=== PATIENT | male | born 1970 | race Caucasian/White ===

== ENCOUNTER 2017-02-19 01:13 | Emergency (ER) | payer MEDICAID, OTHER ==
[~2017-02-19] VITALS: Ht 162.6 cm; Wt 78.0 kg
[2017-02-19 01:18] VITALS: Ht 162.6 cm; Wt 78.0 kg
[2017-02-19] MEDS ORDERED: KETOROLAC 60 MG INJ IM STA (03:45)
--- NOTE | 2017-02-19 04:10 | ERD ---
ER Documentation Chief Complaint Date/Time DATE: 02/19/17 TIME: 04:08 Chief Complaint scrotal pain x 2 weeks HPI 46-year-old male presents to emergency department for complaints of left scrotal pain for 2 weeks,feels a lump in the left scrotum, discussed the pain as sharp pain, for/10 scale, radiates to the left groin area. Patient denies any new sexual partners. Patient denies any penile discharge. Patient denies any fever or chills. Patient denies any trauma and affected area. Patient denies any dysuria. ROS All systems reviewed and are negative except as per history of present illness. Medications Home Meds Reported Medications [none] Unknown Strength No Conflict Check 02/19/17 Allergies Allergies: Coded Allergies: No Known Allergy (Unverified , 02/19/17) PMhx/Soc Medical and Surgical Hx: pt denies Medical Hx, pt denies Surgical Hx Hx Alcohol Use: No Hx Substance Use: No Hx Tobacco Use: No Smoking Status: Never smoker FmHx Family History: No coronary disease, No diabetes, No other Physical Exam Vitals Vital Signs Date Time Temp Pulse Resp B/P Pulse Ox O2 Delivery O2 Flow Rate FiO2 02/19/17 01:18 97.8 88 20 130/86 98 Physical Exam GENERAL: The patient is well developed and appropriate for usual state of health, in no apparent distress. CHEST: Clear to auscultation bilaterally. There are no rales, wheezes or rhonchi. HEART: Regular rate and rhythm. No murmurs, clicks, rubs or gallops. No S3 or S4. ABDOMEN: Soft, nontender and nondistended. Good bowel sounds. No rebound or guarding. No gross peritonitis. No gross organomegaly or masses. No Mosqueda sign or McBurney point tenderness. BACK: No midline or flank tenderness. EXTREMITIES: Equal pulses bilaterally. There is no peripheral clubbing, cyanosis or edema. No focal swelling or erythema. Full range of motion. Grossly neurovascularly intact. NEURO: Alert and oriented. Cranial nerves 2-12 intact. Motor strength in all 4 extremities with 5/5 strength. Sensation grossly intact. Normal speech and gait. SKIN: There is no apparent rash or petechia. The skin is warm and dry. HEMATOLOGIC AND LYMPHATIC: There is no evidence of excessive bruising or lymphedema. No gross cervical, axillary, or inguinal lymphadenopathy. : Noted tenderness on palpation on the left scrotum, no redness noted, no swelling noted, no discharge. No lesions noted. Mild tenderness on palpation on the left groin area, no swelling noted. No palpable inguinal hernia noted. Results 24 hrs Laboratory Tests Test 02/19/17 03:55 Urine Color YELLOW Urine Clarity CLEAR Urine pH 5.0 Urine Specific [place] 1.024 Urine Ketones NEGATIVEmg/dL Urine Nitrite NEGATIVEmg/dL Urine Bilirubin NEGATIVEmg/dL Urine Urobilinogen NEGATIVEmg/dL Urine Leukocyte Esterase NEGATIVELeu/ul Urine Hemoglobin NEGATIVEmg/dL Urine Glucose NEGATIVEmg/dL Urine Total Protein NEGATIVEmg/dl Current Medications Medications (Trade) Dose Ordered Sig/Veronica Route PRN Reason Start Time Stop Time Status Last Admin Dose Admin Ketorolac Tromethamine (Toradol) 60 mg ONCE STAT IM 02/19/17 03:45 02/19/17 03:46 DC 02/19/17 04:42 Patient was given medication for pain here in emergency department, after treatment, patient verbalized feeling much better. Patient's pain is improved. PROCEDURE: Scrotal ultrasound CLINICAL INDICATION: Pain TECHNIQUE: Scrotal ultrasound was performed with sagittal and transverse views. Godwin scale and color imaging was performed. Images were reviewed on high resolution PACS monitors. COMPARISON: None available FINDINGS: The right testicle measures 4.5 x 2.1 x 2.7 cm. There is normal size and echogenicity and morphology of the right testicle with normal blood flow. The right epididymis is normal. A small right hydrocele is seen. Soft tissues are unremarkable. No mass or cyst or other abnormality is present. There is no evidence for a varicocele. The left testicle measures 4.0 x 1.8 x 2.7 cm. There is normal size and echogenicity and morphology of the left testicle with normal blood flow. There is a 6 mm left epididymal head cyst. The left epididymis is otherwise normal. No hydrocele is seen. Soft tissues are unremarkable. No mass or cyst or other abnormality is present. There is no evidence for a varicocele. IMPRESSION: 1. Normal appearance of the testes. 2. Small right hydrocele. RPTAT: HH .Deb Vaughn MD, Date Time Electronically viewed and signed by .Deb Vaughn MD, MD on 02/19/2017 05 :21 .G/ CC: ROBERT HERNANDEZ NP PROCEDURE: Left groin ultrasound CLINICAL INDICATION: Left groin pain. Rule out hernia. TECHNIQUE: Sonographic evaluation of the left groin was performed. Godwin scale and color imaging was obtained. Evaluation of the left groin was performed both with and without Valsalva maneuver. Images were reviewed on a high-resolution PACS workstation. COMPARISON: None available FINDINGS: The normal fascial planes and underlying musculature is preserved. Subcutaneous tissues of the left groin are unremarkable. The vasculature is visualized is normal. No mass or fluid collection or other abnormality is seen. There is no adenopathy. No hernia is seen with Valsalva maneuver. IMPRESSION: 1. Unremarkable ultrasound of the left groin. 2. No definite evidence for hernia. RPTAT: HH .Deb Vaughn MD, Date Time Electronically viewed and signed by .Deb Vaughn MD, on 02/19/2017 05 :21 .G/ Procedures/[facility] Medical decision making: Patient's left scrotal pain nonspecific at this time, no testicular torsion noted, no symptoms of any orchitis or epididymitis, and it is an incidental finding of epididymal cysts noted, and a right hydrocele. No blood in the urine, no infection in the urine. No symptoms of any sepsis at this time. No inguinal hernia noted. Prescription was given for ibuprofen, Grady, is advised to follow-up with urology specialist for further evaluation and management. Patient was advised to return to emergency department for any worsening symptoms. Disposition: Home. Stable. Departure Diagnosis: Primary Impression: Testicular pain, left Additional Impressions: Epididymal cyst Hydrocele Hydrocele type: unspecified Qualified Code: N43.3 - Hydrocele, unspecified hydrocele type Condition: Stable Patient Instructions: Hydrocele, Type Not Specified, Testicular Pain, Unclear Cause ROBERT HERNANDEZ NP Feb 19, 2017 04:10
[2017-02-19 04:21] LABS: ADD UMIC NO; UR ASCORBIC ACID NEGATIVE (NEGATIVE); UR BILIRUBIN (Dip) NEGATIVE (NEGATIVE); UR BLOOD (Dip) NEGATIVE (NEGATIVE); UR CLARITY CLEAR (CLEAR); UR COLOR YELLOW (YELLOW); UR GLUCOSE (Dip) NEGATIVE (NEGATIVE); UR KETONES (Dip) NEGATIVE (NEGATIVE); UR LEUKOCYTE ESTERASE (Dip) NEGATIVE Leu/ul (NEGATIVE); UR NITRITE (Dip) NEGATIVE (NEGATIVE); UR SPECIFIC GRAVITY (Dip) 1.024 (1.003-1.030); UR TOTAL PROTEIN (Dip) NEGATIVE (NEGATIVE); UR UROBILINOGEN (Dip) NEGATIVE (NEGATIVE)
--- NOTE | 2017-02-19 05:21 | RADRPT ---
PROCEDURE: Scrotal ultrasound CLINICAL INDICATION: Pain TECHNIQUE: Scrotal ultrasound was performed with sagittal and transverse views. Godwin scale and co neal imaging was performed. Images were reviewed on high resolution PACS monitors. COMPARISON: None available FINDINGS: The right testicle measures 4.5 x 2.1 x 2.7 cm. There is normal size and echogenicity and morphology of the right testicle with normal blood flow. The right epididymis is normal. A small right hydroc riya is seen. Soft tissues are unremarkable. No mass or cyst or other abnormality is present. There is no evidence for a varicocele. The left testicle measures 4.0 x 1.8 x 2.7 cm. There is normal size and echogenicity and morphology of the left testicle with normal blood flow. There is a 6 mm left epididymal head cyst. The left epi didymis is otherwise normal. No hydrocele is seen. Soft tissues are unremarkable. No mass or cyst or other abnormality is present. There is no evidence for a varicocele. IMPRESSION: 1. Normal appearance of the testes. 2. Small right hydrocele. RPTAT: HH .Deb Vaughn MD, Date Time Electronically viewed and signed by .Deb Vaughn MD, on 02/19/2017 05:21 .G/
--- NOTE | 2017-02-19 05:21 | RADRPT ---
PROCEDURE: Left groin ultrasound CLINICAL INDICATION: Left groin pain. Rule out hernia. TECHNIQUE: Sonographic evaluation of the left groin was performed. Godwin scale and color imaging w as obtained. Evaluation of the left groin was performed both with and without Valsalva maneuver. I mages were reviewed on a high-resolution PACS workstation. COMPARISON: None available FINDINGS: The normal fascial planes and underlying musculature is preserved. Subcutaneous tissues of the left groin are unremarkable. The vasculature is visualized is normal. No mass or fluid collection or o ther abnormality is seen. There is no adenopathy. No hernia is seen with Valsalva maneuver. IMPRESSION: 1. Unremarkable ultrasound of the left groin. 2. No definite evidence for hernia. RPTAT: HH .Deb Vaughn MD, Date Time Electronically viewed and signed by .Deb Vaughn MD, on 02/19/2017 05:21 .G/
[2017-02-19] MEDS ORDERED: IBUP-1542 PO (05:28)
[2017-02-19] MEDS ORDERED: HYDR-906 PO (05:28)
[2017-02-19 05:37] VITALS: BP 131/78; PULSE 72; RESP 16; TEMP 98.3
== END 2017-02-19 05:39 | disposition home or self-care (01) ==
LOC: FTE 01:13
DX: N50.812 Left testicular pain (principal); N50.3 Cyst of epididymis; N43.3 Hydrocele, unspecified
CPT/HCPCS: 76536; 76870; 81003; 87591; 96372; J1885; Z7502